=== PATIENT | female | born 1950 | race Caucasian/White ===

== ENCOUNTER 2017-09-17 09:56 | Emergency (ER) | payer MEDICARE, OTHER ==
[~2017-09-17] VITALS: Ht 175.3 cm; Wt 112.6 kg
[~2017-09-17 09:56] MED LIST: CITRTAB7 PO; DOCU1CAP39 PO; HYDR-3580 PO; OMEP20TA PO; SIMV20 PO; TAB-TAB PO; THER1GEL PO
[2017-09-17 10:00] VITALS: BP 174/100; PULSE 76; RESP 15; TEMP 98.6; O2SAT 95
[2017-09-17] MEDS ORDERED: OMEP20TA93 PO (10:13)
[2017-09-17] MEDS ORDERED: MULTTAB67 PO (10:13)
[2017-09-17] MEDS ORDERED: META28.34 PO (10:13)
[2017-09-17] MEDS ORDERED: [UNRECOGNIZED DRUG - OTHER] PO (10:13)
[2017-09-17] MEDS ORDERED: ASPI-183 PO (10:31)
[2017-09-17] MEDS ORDERED: LISINOPRIL 20 MG TAB PO ONE (10:45)
--- NOTE | 2017-09-17 10:50 | PD ---
HPI Chief Complaint: Hypertension Time Seen by Provider: 10:22 Travel History International Travel<30 days: No Contact w/Intl Traveler<30days: No Traveled to known affect area: No History of Present Illness HPI This 67-year-old female is complaining of high blood pressure. She was feeling some dizziness yesterday and she got a blood pressure meter. He had repeated measurements yesterday with about 150/100. Her dizziness is better today. She still has some when she moves her head suddenly. She is not on any prescription medication she has not had high blood pressure before. Her mother and sister both had aneurysms. She is not having any pain anywhere. PFSH Past Medical History Arthritis: Yes Cancer: No Cardiovascular Problems: Yes High Cholesterol: Yes Endocrine: No Gastrointestinal Disorders: Yes GERD: Yes Genitourinary: No Immune Disorder: No Musculoskeletal: Yes Neurologic: No Psychiatric: No Reproductive: No Respiratory: No Tetanus Vaccination: > 5 Years Influenza Vaccination: Yes Menopausal: Yes Past Surgical History Abdominal Surgery: Yes (umbilical x 2) Other Surgery: Yes ( breast biopsy, right breast) Social History Alcohol Use: Yes (mix drinks occas) Tobacco Use: No (quit approx 4 years smoked cigs) Substance Use: No Allergies-Medications (Allergen,Severity, Reaction): Coded Allergies: No Known Allergies (Unverified Adverse Reaction, Unknown, 09/17/17) Reported Meds & Prescriptions Reported Meds & Active Scripts Active Reported Aspirin 325 Mg Tab 650 Mg PO Q6H Metamucil Smooth Texture (Psyllium Hydrophilic Mucilloid) 3.4 Gram/12 Gram Pow 1 Scoop PO DAILY 1 rounded [place] in 8 oz of liquid at the first sign of irregularity. Omeprazole 20 Mg Tab 20 Mg PO DAILY [Citrical D] 1 Tab PO BID Multiple Vitamin 1 Tab 1 Tab PO DAILY Review of Systems General / Constitutional: No: Fever, Chills Eyes: No: Diploplia, Blurred Vision HENT: Positive: Vertigo, No: Headaches Cardiovascular: No: Chest Pain or Discomfort, Palpitations Respiratory: No: Cough, Shortness of Breath Gastrointestinal: No: Nausea, Vomiting Genitourinary: No: Frequency, Dysuria Musculoskeletal: No: Myalgias, Arthralgias Skin: No Rash Neurologic: No: Weakness, Dizziness Hematologic/Lymphatic: No: Easy Bruising Physical Exam Narrative GENERAL: Well-developed female blood pressure is 1 6500 SKIN: Focused skin assessment warm/dry. HEAD: Atraumatic. Normocephalic. EYES: Pupils equal and round. No scleral icterus. No injection or drainage. ENT: No nasal bleeding or discharge. Mucous membranes pink and moist. NECK: Trachea midline. No JVD. CARDIOVASCULAR: Regular rate and rhythm. No murmur appreciated. RESPIRATORY: No accessory muscle use. Clear to auscultation. Breath sounds equal bilaterally. GASTROINTESTINAL: Abdomen soft, non-tender, nondistended. Hepatic and splenic margins not palpable. MUSCULOSKELETAL: No obvious deformities. No clubbing. No cyanosis. No edema. NEUROLOGICAL: Awake and alert. No obvious cranial nerve deficits. Motor grossly within normal limits. Normal speech. PSYCHIATRIC: Appropriate mood and affect; insight and judgment normal. Data Data Last Documented VS Vital Signs Date Time Temp Pulse Resp B/P (MAP) Pulse Ox O2 Delivery O2 Flow Rate FiO2 09/17/17 10:00 98.6 76 15 174/100 (124) 95 Orders Orders Complete Blood Count With Diff (09/17/17 10:36) Basic Metabolic Panel (Bmp) (09/17/17 10:36) Urinalysis - C+S If Indicated (09/17/17 10:36) Lisinopril (Prinivil) (09/17/17 10:45) Labs Laboratory Tests Test 09/17/17 10:40 09/17/17 10:45 Urine Collection Type VOIDED Urine Color YELLOW Urine Turbidity CLEAR Urine pH 5.5 Urine Specific [place] 1.011 Urine Protein NEG mg/dL Urine Glucose (UA) NEG mg/dL Urine Ketones NEG mg/dL Urine Occult Blood TRACE Urine Nitrite NEG Urine Bilirubin NEG Urine Leukocyte Esterase SMALL Urine WBC 0-2 /hpf Urine Squamous Epithelial Cells 0-2 /hpf Microscopic Urinalysis Comment CULT NOT INDICATED White Blood Count 5.8 TH/MM3 Red Blood Count 5.18 MIL/MM3 Hemoglobin 14.5 GM/DL Hematocrit 44.3 % Mean Corpuscular Volume 85.4 FL Mean Corpuscular Hemoglobin 27.9 PG Mean Corpuscular Hemoglobin Concent 32.7 % Red Cell Distribution Width 13.4 % Platelet Count 233 TH/MM3 Mean Platelet Volume 9.0 FL Neutrophils (%) (Auto) 58.7 % Lymphocytes (%) (Auto) 33.1 % Monocytes (%) (Auto) 4.0 % Eosinophils (%) (Auto) 3.3 % Basophils (%) (Auto) 0.9 % Neutrophils # (Auto) 3.4 TH/MM3 Lymphocytes # (Auto) 1.9 TH/MM3 Monocytes # (Auto) 0.2 TH/MM3 Eosinophils # (Auto) 0.2 TH/MM3 Basophils # (Auto) 0.1 TH/MM3 CBC Comment DIFF FINAL Differential Comment Blood Urea Nitrogen 17 MG/DL Random Glucose 97 MG/DL Calcium Level 9.3 MG/DL Sodium Level 140 MEQ/L Potassium Level 4.1 MEQ/L Chloride Level 105 MEQ/L Carbon Dioxide Level 28.2 MEQ/L Anion Gap 7 MEQ/L [facility] Medical Decision Making Medical Screen Exam Complete: Yes Emergency Medical Condition: Yes Medical Record Reviewed: Yes Differential Diagnosis Differential includes hypertension, transient hypertension Narrative Course Has repeated elevated readings over the last couple of days. She is not symptomatic. I will initiate lisinopril 20 mg daily. She does not have a local physician. She is a no murmur. The importance of follow-up was stressed to patient Diagnosis Primary Impression: Hypertension Qualified Codes: I10 - Essential (primary) hypertension Scripts Lisinopril (Lisinopril) 20 Mg Tab 20 MG PO DAILY, #30 TAB 0 Refills Prov: Jayjay Quinn MD 09/17/17 Disposition: 01 DISCHARGE HOME Condition: Stable Jayjay Quinn MD Sep 17, 2017 10:50
[2017-09-17 10:58] LABS: GLUCOSE,URINE NEG (NEG); KETONE, URINE NEG (NEG); NITRITE,URINE NEG (NEG); PH, URINE 5.5 (5.0-8.5)
[2017-09-17 10:59] LABS: AUTOMATED NEUTROPHIL # 3.4 TH/MM3 (1.8-7.7); BASOPHIL # 0.1 TH/MM3 (0-0.2); BASOPHIL % 0.9 % (0.0-2.0); EOSINOPHIL # 0.2 TH/MM3 (0-0.4); EOSINOPHIL % 3.3 % (0.0-4.0); HEMATOCRIT 44.3 % (35.0-46.0); HEMO FLAGS DIFF FINAL; LYMPH % 33.1 % (9.0-44.0); LYMPHOCYTE # 1.9 TH/MM3 (1.0-4.8); MEAN CELL VOLUME 85.4 FL (80.0-100.0); MEAN CORPUSCULAR HEMOGLOBIN 27.9 PG (27.0-34.0); MEAN CORPUSCULAR HGB CONC 32.7 % (32.0-36.0); NEUT % 58.7 % (16.0-70.0); PLATELET COUNT 233 TH/MM3 (150-450); RED BLOOD COUNT 5.18 MIL/MM3 (4.00-5.30); RED CELL DISTRIBUTION WIDTH 13.4 % (11.6-17.2); WHITE BLOOD COUNT 5.8 TH/MM3 (4.0-11.0)
[2017-09-17 10:59] LABS: BLOOD, URINE TRACE (NEG)
[2017-09-17 11:06] LABS: METHOD OF COLLECTION VOIDED; URINE COLOR YELLOW (YELLW/STRAW)
[2017-09-17 11:06] LABS: POTASSIUM 4.1 MEQ/L (3.5-5.1)
[2017-09-17 11:07] LABS: COMMENT (UR) CULT NOT INDICATED; CULTURE IF INDICATED CULT NOT INDICATED; SQUAMOUS EPITHELIAL CELL URINE 0-2 /hpf (0-5); WBC, URINE 0-2 /hpf (0-5)
[2017-09-17 11:09] LABS: BICARBONATE 28.2 MEQ/L (21.0-32.0)
[2017-09-17] MEDS ORDERED: LISI-515 PO (11:11)
[2017-09-17 11:21] VITALS: BP 169/101; PULSE 73; RESP 18; O2SAT 95
== END 2017-09-17 11:33 | disposition home or self-care (01) ==
LOC: PHED 09:56
DX: I10 Essential (primary) hypertension (principal); E78.00 Pure hypercholesterolemia, unspecified
CPT/HCPCS: 80048; 81001; 85025; 99283